=== PATIENT | male | born 1945 | race Caucasian/White ===

== ENCOUNTER 2018-11-28 13:29 | Emergency (ER) | payer MEDICARE ==
[2018-11-28 14:11] LABS: Bilirubin Negative (Negative); Blood, Urine Negative (Negative); Clarity Clear (Clear); Glucose, Urine (Dipstick) Negative (Negative); Leukocyte Negative (Negative); Nitrite Negative (Negative); Protein, Urine (Dipstick) Negative (Neg-Trace); Urobilinogen 0.2 mg/dL (0.2-1.0)
--- NOTE | 2018-11-28 14:53 | ULT ---
FUS Testicular W Doppler History: [Pain] Comparison: None Findings: Real-time grayscale color Doppler and spectral analysis of the testicles was performed. The re is absence of the right testicle. There is a left testicle measuring 4.7 x 0.8 x 1.6 cm without an y vascular flow. Small epididymal head cyst on the left. Impression: Absent right testicle and no flow to the small abnormal appearing left testicle. If the p atient has had recent acute pain, this may reflect a late subacute torsion although there is no signi ficant peritesticular fluid to support an acute torsion. Code C. R.
== END 2018-11-28 15:20 | disposition home or self-care (01) ==
LOC: MADERS 13:29
DX: N48.89 Other specified disorders of penis (principal); E66.9 Obesity, unspecified; E78.5 Hyperlipidemia, unspecified; I10 Essential (primary) hypertension; Z79.899 Other long term (current) drug therapy; Z79.82 Long term (current) use of aspirin
CPT/HCPCS: 76870; 81003; 93976